=== PATIENT | female | born 2000 | race Caucasian/White ===

== ENCOUNTER 2022-10-21 09:52 | Outpatient (CLI) | payer BC, SELFPAY ==
--- NOTE | 2022-10-21 10:11 | NM_ITS ---
WS: [id number] NUCLEAR MEDICINE HIDA SCAN WITH GALLBLADDER EJECTION FRACTION HISTORY: RUQ PAIN COMPARISON: Gallbladder ultrasound 09/21/2022 TECHNIQUE: The patient was intravenously injected with 7.2 mCi of TC99m Mebrofenin. Immediate imaging over the right upper quadrant was followed by 5 minute image and additional images for a total of 60 minutes. Normal uptake of radiotracer throughout the liver. Activity identified in the gallbladder at 10 minutes and well distended by 60 minutes. Activity in the proximal small bowel was seen by 30 minutes. Good washout of the radiotracer from the liver by 60 minutes. The patient then drank 8 ounces of Ensure Plus. Ejection fraction at 60 minutes was 83%. Normal GB ej ection fraction is 35-75%. Post fatty meal symptoms: None. NM/NM hepatobiliary w phar* [id number] IMPRESSION: 1. Normal HIDA scan. 2. Normal gallbladder ejection fraction.
== END 2022-10-21 09:53 | disposition home or self-care (01) ==
PROVIDERS: PCP Family Medicine; Visit Provider Family Medicine
DX: R10.11 Right upper quadrant pain (principal)
CPT/HCPCS: 78227; A9537

== ENCOUNTER → 2023-09-01 13:44 | Outpatient (BNVA) | payer MEDICAID, SELFPAY | PROVIDERS: PCP Family Medicine; Visit Provider Family Medicine | DX: Z34.90 Encounter for supervision of normal pregnancy, unspecified, unspecified trimester (principal); Z3A.00 Weeks of gestation of pregnancy not specified; R30.0 Dysuria | CPT/HCPCS: 80307; 81000; 81025; 84144; 84443; 84702; 85025; 86592; 86762; 86803; 86850; 86900; 87086; 87340; 87491; 87591; 87624; 87806 ==

== ENCOUNTER 2023-09-14 09:41 | Outpatient (CLI) | payer MEDICAID, SELFPAY ==
--- NOTE | 2023-09-14 10:00 | US_ITS ---
WS: [id number] EARLY OBSTETRICAL ULTRASOUND (<14 WEEKS). HISTORY: Dating COMPARISON: None available. Single intrauterine gestational sac is identified. Cardiac activity at 144 BPM. [place]-rump length isaias sures 1.0 cm which corresponds to a gestation of 7w1d. Normal-appearing yolk sac and amnion demonstra froilan. No subchorionic hemorrhage. No free fluid. Corpus luteal cyst RIGHT ovary measures 2.0 x 2.1 x 2.3 cm. Both ovaries contain normal flow. IMPRESSION: 1. Single intrauterine gestation of 7w1d with an EDC of 05/01/2024. 2. Normal cardiac activity.
== END 2023-09-14 09:42 | disposition home or self-care (01) ==
LOC: RAD 09:41
PROVIDERS: PCP Family Medicine; Visit Provider Family Medicine
DX: Z34.00 Encounter for supervision of normal first pregnancy, unspecified trimester (principal); Z34.01 Encounter for supervision of normal first pregnancy, first trimester; Z3A.01 Less than 8 weeks gestation of pregnancy
CPT/HCPCS: 76801; 76817

== ENCOUNTER → 2023-11-25 07:20 | Outpatient (BNVA) | payer MEDICAID, SELFPAY | PROVIDERS: PCP Family Medicine; Visit Provider Family Medicine | DX: Z34.00 Encounter for supervision of normal first pregnancy, unspecified trimester (principal); Z3A.00 Weeks of gestation of pregnancy not specified | CPT/HCPCS: 81511 ==

== ENCOUNTER → 2024-01-23 10:14 | Outpatient (BNVA) | payer MEDICAID, SELFPAY | PROVIDERS: PCP Family Medicine; Visit Provider Family Medicine | DX: Z34.00 Encounter for supervision of normal first pregnancy, unspecified trimester (principal); Z3A.00 Weeks of gestation of pregnancy not specified | CPT/HCPCS: 82950 ==

== ENCOUNTER → 2024-03-05 11:09 | Outpatient (BNVA) | payer MEDICAID, SELFPAY | PROVIDERS: PCP Family Medicine; Visit Provider Family Medicine | DX: Z51.81 Encounter for therapeutic drug level monitoring (principal) | CPT/HCPCS: 85025 ==

== ENCOUNTER → 2024-04-02 12:39 | Outpatient (BNVA) | payer MEDICAID, SELFPAY | PROVIDERS: PCP Family Medicine; Visit Provider Family Medicine | DX: Z34.90 Encounter for supervision of normal pregnancy, unspecified, unspecified trimester (principal); Z3A.00 Weeks of gestation of pregnancy not specified | CPT/HCPCS: 87081 ==

== ENCOUNTER 2024-04-08 17:32 | Outpatient (CLI) | payer MEDICAID, SELFPAY ==
[2024-04-08 17:30] VITALS: BMI 354.2
[2024-04-08 17:45] VITALS: BP 149/98; PULSE 76
[2024-04-08 17:57] LABS: Bilirubin Urine Negative (Negative); Blood Urine Negative (Negative); Glucose Urine UA Negative (Normal); Ketones Urine Negative (Negative); Leukocyte Esterase Urine Negative (Negative); Nitrate Urine Negative (Negative); Protein Urine Negative (Negative); Specific Gravity, Urine 1.007 (1.005-1.030); Urine Appearance Clear (CLEAR); Urine Color Yellow (Yellow)
[2024-04-08 18:01] VITALS: BP 142/75; PULSE 71
[2024-04-08 18:02] LABS: Bacteria Urine Trace /hpf; RBC Urine 0-2 /hpf (0-2); Squamous Epithelial Cell Urine 0-5 /hpf (0-5); WBC Urine 0-5 /hpf (0-5)
[2024-04-08 18:24] LABS: Urine Creatinine 38 mg/dL (28-217); Urine Protein Random 6 mg/dL
[2024-04-08 18:25] LABS: UPRO/UCREAT Ratio 0.16 mg/mg CR
[2024-04-08 18:30] VITALS: BP 124/76; PULSE 68
[2024-04-08 18:30] LABS: Basophils # 0.1 10^3/uL (0.0-0.1); Basophils % 0.4 %; Eosinophils # 0.1 10^3/uL (0.0-0.8); Eosinophils % 0.6 %; Hematocrit 37.6 % (36-47); Lymphocytes # 2.3 10^3/uL (0.8-4.8); Lymphocytes % 19.3 %; Mean Corpuscular HGB Conc 33.2 g/dL (30-55); Mean Corpuscular Hemoglobin 30.2 pg (27-33); Mean Corpuscular Volume 90.8 fl (85-98); Mean Platelet Volume 9.9 fL (7.4-10.4); Monocytes % 8.5 %; Neutrophils # 8.52 10^3/uL (1.8-7.7); Neutrophils % 70.7 %; Nucleated Red Blood Cells % 0 %; Platelet Count 249 10^3/cmm (157-399); Red Blood Count 4.14 10^6/uL (3.85-5.65); Red Cell Distribution Width 12.8 % (12.1-15.1); White Blood Count 12.05 10^3/uL (3.29-11.43)
[2024-04-08 18:45] VITALS: BP 125/73; PULSE 64
[2024-04-08 18:51] LABS: Alanine Aminotransferase 12 U/L (0-33); Albumin Level 3.3 g/dL (3.5-5.2); Alkaline Phosphatase 134 U/L (35-105); Anion Gap 13.7 (5-19); Aspartate Amino Transferase 21 U/L (0-32); Blood Urea Nitrogen 8 mg/dL (6-20); Calcium 8.3 mg/dL (8.5-10.5); Carbon Dioxide 22 mmol/L (22-29); Chloride 106 mmol/L (98-107); Creatinine Clr Calc Pharmacy 923.2607; Globulin 2.2 g/dL (1.3-4.6); Glomerular Filtration Rate 126.2 mL/min (90-130); Glucose 90 mg/dL (65-115); Osmolality Calculated 284 mOsm/kg (285-295); Potassium 3.7 mmol/L (3.5-5.1); Sodium 138 mmol/L (136-145); Total Bilirubin 0.2 mg/dL (0.15-1.2); Total Protein 5.5 g/dL (6.6-8.7)
[2024-04-08 19:00] VITALS: BP 125/76; PULSE 66
[2024-04-08 19:15] VITALS: BP 125/76; PULSE 66; O2SAT 0
== END 2024-04-08 19:21 | disposition home or self-care (01) ==
LOC: OPOB 17:32 → OBGYN 17:33
PROVIDERS: PCP Family Medicine; Visit Provider Family Medicine
DX: O16.9 Unspecified maternal hypertension, unspecified trimester (principal); Z3A.00 Weeks of gestation of pregnancy not specified
CPT/HCPCS: 36415; 59025; 80053; 81001; 82570; 84156; 84550; 85025; 99211

== ENCOUNTER 2024-04-09 19:06 | Outpatient (CLI) | payer MEDICAID, SELFPAY | END 2024-04-09 19:07 | disposition home or self-care (01) | PROVIDERS: PCP Family Medicine; Visit Provider Family Medicine | DX: O16.3 Unspecified maternal hypertension, third trimester (principal) | CPT/HCPCS: 84156 ==

== ENCOUNTER 2024-04-12 09:51 | Outpatient (CLI) | payer MEDICAID, SELFPAY ==
[2024-04-12] VITALS (7 sets, daily range): BP systolic 115–132; BP diastolic 56–80; PULSE 63–96; TEMP 35.8; BMI 35.0
--- NOTE | 2024-04-12 10:29 | USR_ITS ---
PROCEDURE INFORMATION: Exam: US Biophysical Profile Without Non-Stress Test Exam date and time: 04/12/2024 11:09 AM Age: 23 years old Clinical indication: Other: HTN; ; Additional info: Gestational hypertension, jaylen, efw, pi TECHNIQUE: Imaging protocol: US biophysical profile without non-stress testing. COMPARISON: US OB >= 14 weeks fetus [id number] 12/19/2023 8:05 AM FINDINGS: heart rate: 142 bpm. presentation and position: Cephalic presentation. Placenta: Posterior fundal placenta without previa. Amniotic fluid index: JAYLEN is 14.35 cm. BIOPHYSICAL PROFILE: breathing (BPP): 2 out of 2. gross body movement (BPP): 2 out of 2. tone (BPP): 2 out of 2. Amniotic fluid (BPP): 2 out of 2. JAYLEN is 14.35. BIOMETRY: Estimated due date (AUA): Composite ultrasound age is 37 weeks and 4 days which gives an estimated date of delivery of April 29, 2024. Menstrual dating estimates the gestational age to be 37 weeks and 2 days which gives an estimated date of delivery of May 01, 2024. Estimated weight: Estimated weight is 3149 g or 6 lb 15 oz. This is the 56.1 percentile. Head circumference (HC): Head circumference is 33.46 cm. Thirty-eight weeks and 2 days. 49.3 percentile. Biparietal diameter (BPD): Biparietal diameter is 9.26 cm. Thirty-seven weeks and 4 days. 76.3 percentile. Abdominal circumference (AC): Abdominal circumference is 33.04 cm. Thirty-seven weeks and 0 days. 55.5 percentile. Femur length (FL): Femur length is 7.25 cm. Thirty-seven weeks and 1 day. 45.5 percentile. biometric ratios: Femur length to abdominal circumference ratio is 21.94. Femur length to head circumference ratio is 21.67. Femur length to biparietal diameter ratio is 78.29. Head circumference to abdominal circumference ratio is 1.01. These ratios are all within normal limits. MATERNAL ANATOMY: Uterus: Single live intrauterine baby. Cervix: Cervical length measures 3.9 cm. Normal-appearing maternal cervix. Other findings: Umbilical cord resistive index is 0.51. PS/ED is 2.0. US/US OB lm w fetalBPP woNST &umb IMPRESSION: 1. Normal biophysical profile score is 8/8. 2. Additional details as above.
== END 2024-04-12 12:12 | disposition home or self-care (01) ==
LOC: OPOB 09:53 → OBGYN 09:53
PROVIDERS: PCP Family Medicine; Visit Provider Family Medicine
DX: O16.3 Unspecified maternal hypertension, third trimester (principal); Z3A.37 37 weeks gestation of pregnancy
CPT/HCPCS: 59025; 76815; 76819; 76820

== ENCOUNTER 2024-04-18 06:02 | Inpatient (IN) | payer MEDICAID, SELFPAY ==
[2024-04-18] VITALS (73 sets, daily range): BP systolic 104–188; BP diastolic 57–100; PULSE 57–152; RESP 16–18; TEMP 35.7–36.6; O2SAT 88–100; BMI 34.5
[2024-04-18 06:46] LABS: Bilirubin Urine Negative (Negative); Blood Urine 2+ (Negative); Glucose Urine UA Negative (Normal); Ketones Urine Negative (Negative); Leukocyte Esterase Urine 1+ (Negative); Nitrate Urine Negative (Negative); Protein Urine 1+ (Negative); Specific Gravity, Urine 1.018 (1.005-1.030); Urine Appearance Cloudy (CLEAR); Urine Color Dark Yellow (Yellow)
[2024-04-18 06:47] LABS: Basophils # 0.1 10^3/uL (0.0-0.1); Basophils % 0.4 %; Eosinophils # 0.1 10^3/uL (0.0-0.8); Eosinophils % 0.6 %; Hematocrit 38.6 % (36-47); Lymphocytes # 2.5 10^3/uL (0.8-4.8); Lymphocytes % 17.8 %; Mean Corpuscular HGB Conc 33.4 g/dL (30-55); Mean Corpuscular Hemoglobin 29.9 pg (27-33); Mean Corpuscular Volume 89.4 fl (85-98); Mean Platelet Volume 10.5 fL (7.4-10.4); Monocytes # 0.9 10^3/uL (0.2-0.9); Monocytes % 6.4 %; Neutrophils # 10.32 10^3/uL (1.8-7.7); Neutrophils % 73.7 %; Nucleated Red Blood Cells % 0 %; Platelet Count 288 10^3/cmm (157-399); Red Blood Count 4.32 10^6/uL (3.85-5.65); Red Cell Distribution Width 12.7 % (12.1-15.1); White Blood Count 14.02 10^3/uL (3.29-11.43)
[2024-04-18 06:51] LABS: Add Urine Microscopic? YES; Bacteria Urine 4+ /hpf; Hyaline Casts Urine 8.26 /lpf; RBC Urine 51-100 /hpf (0-2); WBC Urine 51-100 /hpf (0-5)
[2024-04-18 07:21] LABS: Squamous Epithelial Cell Urine 21-50 /hpf (0-5)
[2024-04-18 07:23] LABS: UA Slide Review UA Slide Review Perf
[2024-04-18 07:27] LABS: Urine Creatinine 203 mg/dL (28-217)
[2024-04-18] MEDS: miSOPROStol 100 mcg tablet 25 MCG VAGINAL (07:31)
[2024-04-18 07:32] LABS: Alanine Aminotransferase 14 U/L (0-33); Albumin Level 3.3 g/dL (3.5-5.2); Alkaline Phosphatase 152 U/L (35-105); Anion Gap 16.7 (5-19); Aspartate Amino Transferase 20 U/L (0-32); Blood Urea Nitrogen 10 mg/dL (6-20); Calcium 8.2 mg/dL (8.5-10.5); Carbon Dioxide 17 mmol/L (22-29); Chloride 104 mmol/L (98-107); Creatinine Clr Calc Pharmacy 187.7468; Globulin 3.1 g/dL (1.3-4.6); Glomerular Filtration Rate 155.7 mL/min (90-130); Glucose 84 mg/dL (65-115); Osmolality Calculated 276 mOsm/kg (285-295); Potassium 3.7 mmol/L (3.5-5.1); Sodium 134 mmol/L (136-145); Total Bilirubin 0.3 mg/dL (0.15-1.2); Total Protein 6.4 g/dL (6.6-8.7); Uric Acid 5.5 mg/dL (2.4-5.7)
[2024-04-18 07:39] LABS: UPRO/UCREAT Ratio 0.21 mg/mg CR; Urine Protein Random 42 mg/dL
[2024-04-18] MEDS: fentaNYL 50 mcg/mL INJ 2mL IVP ×2 (14:15→15:48)
--- NOTE | 2024-04-18 14:41 | P.HP_ITS ---
Providers/Chief Complaint 2 Admitting Physician: Jorge Sánchez MD Primary Care Provider: James Torres MD Chief Complaint: INDUCTION History of Present Illness Ailyn Das is a 23 year old @ 38.1 wks by 7 wk US inconsistent with LMP. Preg c/b vaping, anxiety/depression - on Sertraline 25mg daily, gHTN on labetalol. The patient presented to labor and delivery for a scheduled induction of labor secondary to gestational hypertension. She has been having blood pressures that will get as high as 150s to 160s over 100s. With the labetalol it seems to keep it in a decent range in the 140s over 90s. She took 100 mg by mouth on the morning of admission prior to coming in. Currently the patient is feeling well. She denies any chest pains, shortness of breath, nausea, vomiting, diarrhea, constipation, dysuria, vaginal bleeding, leakage of fluid. She has had some headaches that improved with Tylenol. Medications/Allergies Home Medications Medication Instructions Recorded Confirmed Last Taken Type [id number] 27 mg-folic 1 pkg PO DAILY 09/01/23 04/16/24 1 Day Ago History acid 800 mcg-dha 200 mg-lut.oral ~04/11/24 pack sertraline 25 mg tablet 25 mg PO DAILY #30 tabs 03/05/24 04/16/24 1 Day Ago Rx ~04/11/24 labetalol 100 mg tablet 50 mg (1/2 x 100 mg) PO BID #30 04/09/24 04/16/24 1 Day Ago Rx tabs ~04/11/24 Allergies Allergy/AdvReac Type Severity Reaction Status Date / Time No Known Allergies Allergy Verified 02/20/24 10:07 PFSH Acute 2 PFSH: Surgical History No pertinent past surgical history Social History Smoking and tobacco/nicotine status: former use of tobacco/nicotine Alcohol intake: never Substance/Drug Use: never Current occupational status: employed Current occupation: [employer] Female Reproductive History: : 1 Vitals/I&O/Wt Last Vital Signs Pulse 58 L 04/18/24 13:08 Resp 17 04/18/24 14:15 BP 140/87 04/18/24 13:08 O2 Del Method Room Air 04/18/24 06:24 Weight last 48 hrs Weight 195 lb Physical Exam 2 Narrative: General: Alert and oriented x3 Eyes: Pupils equal round and reactive to light and accommodation Mouth: Mucous membranes moist, pharynx non-erythematous Cardiac: Regular rate and rhythm without murmurs Lungs: Clear to auscultation bilaterally without wheezes, crackles or rhonchi Abdomen: Soft, non-tender, fundus consistent with gestational age Extremities: Trace edema in the bilateral lower extremities Data 04/18/24 06:37 04/18/24 07:06 A&P Assessment and plan (1) Supervision of high risk , unspecified, third trimester: The patient is being induced for gestational hypertension. She has been having increasing blood pressures despite labetalol treatment. Her 24-hour urine protein done last week was 162. We will repeat labs today. We will implement the antihypertensive protocol as needed. The patient is GBS negative. We will plan to start induction using Cytotec and augment labor with Pitocin if needed. The patient may have a laboring epidural when desired. Currently heart tones are in a category 1 tracing. (2) Gestational hypertension: Attestations 2 Medical Necessity Statement*: The patient will be here for greater than 2 midnights due to routine intrapartum and management of labor and delivery. Coding Level of Care Code Acute Code for Chg Fwd Diagnoses Supervision of high risk , unspecified, third trimester O09.93 Gestational hypertension O13.9
[2024-04-18] MEDS: lactated ringers 1,000 ML 999 ML IV ×2 (15:13→16:14)
--- NOTE | 2024-04-18 15:50 | P.ANESASSM_ITS ---
Pre-Anesthetic Assessment Height/Weight: Height 5 ft 3 in Weight 195 lb Temp Pulse Resp BP Pulse Ox O2 Del Method 96.3 F L 75 17 145/72 92 Room Air 04/18/24 16:24 04/18/24 16:24 04/18/24 14:15 04/18/24 16:24 04/18/24 16:23 04/18/24 06:24 Preop Diagnosis: Requesting epidural Was Beta Hernan taken within 24 hours: Yes Was Clonidine taken within 24 hours: N/A Social No alcohol and No tobacco Exam alert, oriented x 3, clear to auscultation bilaterally and regular rate & rhythm Airway Submandibular: within normal limits Cervical ROM: within normal limits Mallampati: Class III Dentition: full Anesthetic Plan ASA status: 3 Anesthesia: Regional (specify below) Other: G1, P0 requesting epidural placement Gestational hypertension on labetalol. Most previous BP 145/72 Labs reviewed, platelets 288 Patient denies any issues other than hypertension during METs greater than 4 Plan for epidural Medications/Allergies Home Medications Medication Instructions Recorded Confirmed Last Taken Type [id number] 27 mg-folic 1 pkg PO DAILY 09/01/23 04/16/24 1 Day Ago History acid 800 mcg-dha 200 mg-lut.oral ~04/11/24 pack sertraline 25 mg tablet 25 mg PO DAILY #30 tabs 03/05/24 04/16/24 1 Day Ago Rx ~04/11/24 labetalol 100 mg tablet 50 mg (1/2 x 100 mg) PO BID #30 04/09/24 04/16/24 1 Day Ago Rx tabs ~04/11/24 Allergies Allergy/AdvReac Type Severity Reaction Status Date / Time No Known Allergies Allergy Verified 02/20/24 10:07 Current Medications Generic Name Dose Route Start Last Admin Trade Name Freq PRN Reason Stop Dose Admin Fentanyl 25 - 100 mcg 04/18/24 06:06 04/18/24 14:15 Fentanyl 50 Mcg/Ml Inj 2ml IVP 25 mcg Q1H PRN Administration SEVERE PAIN Lactated Ringer's 1,000 mls @ 999 mls/hr 04/18/24 14:45 04/18/24 16:14 Lactated Ringers IV 999 mls/hr .Q1H1M PRN Administration See label comments Ropivacaine 100 mg in 50 mls @ 10 mls/hr 04/18/24 14:45 04/18/24 16:07 Naropin Syringe EPIDURAL 10 mls/hr .Q5H STEFAN Administration PFSH Anesthesia Surgical History No pertinent past surgical history Social History Smoking and tobacco/nicotine status: former use of tobacco/nicotine Alcohol intake: never Substance/Drug Use: never Current occupational status: employed Current occupation: [employer] Female Reproductive History : 1 Data Anesthesia 04/18/24 06:37 04/18/24 07:06 Short CBC 04/18/24 Range/Units 06:37 WBC 14.02 H (3.29-11.43) 10^3/uL Hgb 12.90 (11.27-16.99) g/dL Hct 38.6 (36-47) % MCV 89.4 (85-98) fl Plt Count 288 (157-399) 10^3/cmm Neut % (Auto) 73.7 % Neut # (Auto) 10.32 H (1.8-7.7) 10^3/uL BMP 04/18/24 04/18/24 06:37 07:06 Sodium Cancelled 134 L Potassium Cancelled 3.7 Chloride Cancelled 104 Carbon Dioxide Cancelled 17 L BUN Cancelled 10 Creatinine Cancelled 0.5 Glucose Cancelled 84 Calcium Cancelled 8.2 L Liver Function 04/18/24 04/18/24 Range/Units 06:37 07:06 Total Bilirubin Cancelled 0.3 AST Cancelled 20 ALT Cancelled 14 Alkaline Phosphatase Cancelled 152 H Albumin Cancelled 3.3 L Urine 04/18/24 Range/Units 06:26 Urine Color Dark yellow A (Yellow) Urine Appearance Cloudy A (CLEAR) Urine pH 6.0 (5-7) Ur Specific [place] 1.018 (1.005-1.030) Urine Protein 1+ A (Negative) Urine Glucose (UA) Negative (Normal) Urine Ketones Negative (Negative) Urine Nitrate Negative (Negative) Urine Bilirubin Negative (Negative) Ur Leukocyte Esterase 1+ A (Negative) Urine RBC 51-100 H (0-2) /hpf Urine WBC 51-100 H (0-5) /hpf Blood Bank 04/18/24 04/18/24 06:37 07:06 Blood Type Cancelled A Positive Rho(D) Type Cancelled Rh positive Antibody Screen Cancelled Negative Cardiac Studies: 2 No Data to Display
--- NOTE | 2024-04-18 16:03 | P.ANES_ITS ---
Anesthesia Procedures Procedure/Date: 04/18/24 Epidural: Time Out Performed: Yes Consents Signed: Procedure Consent Consent: requested by attending/covering physician and from patient Lumbar Level: L3-L4 Epidural position: sitting Epidural procedure: sterile prep of area, 1% lidocaine to numb the area, 18 g needle, negative for paresthesia p assed, neg for paresthesia, test dose given, 1.5% xylocaine 1:200k epi, 0.2% Ropivacaine bolus ml, placed PCEA, no systemic response, sterile dressing applied, L.U.D. no apparent complications and 0.2% Ropiavacaine @ mls/hr (10mls/hr)
[2024-04-18] MEDS: ROPivacaine syringe 100 MG/50 ML SYRINGE 10 MG EPIDURAL (16:07)
[2024-04-18] MEDS: oxytocin 30 UNIT/500 ML BAG 600 UNIT IV (18:17)
[2024-04-18] MEDS: lidocaine 2% INJ 20 mL INJECTION (18:23)
--- NOTE | 2024-04-18 18:51 | P.PCNOB_ITS ---
Delivery Note: Date of delivery: April 18, 2024 Pre-delivery diagnoses: 1. Intrauterine at 38.1 weeks gestation 2. Vaping during 3. Anxiety/depression on sertraline 4. Gestational hypertension on labetalo l Post-delivery diagnoses: 1. Intrauterine status post s pontaneous vaginal delivery at 38.1 weeks gestation 2. Vaping during 3. Anxiety/depression on sertraline 4. Gestational hypertension on labetalo l 5. Delivery of healthy female we ighing 7 pounds 3 ounces with Apgars of 8 and 9 Procedure: Spontaneous vaginal delivery Delivering Physician: Jorge Sánchez MD Estimated blood loss (mL): 200 Findings: 1. Intact placenta with central umbilic al cord insertion site 2. Healthy female weighing 7 tanya nds 3 ounces with Apgars of 8 and 9 Pre-Delivery Course: Ailyn Das is a 23 year old G1 now P1 status post spontaneous vaginal delivery @ 38.1 wks by 7 wk US inconsistent with LMP. Her was complicated by vaping, anxiety/depression - on Sertraline 25mg daily, gHTN on labetalol. The patient presented to labor and delivery for a scheduled induction of labor secondary to gestational hypertension. She had been having blood pressures that will get as high as 150s to 160s over 100s. With the labetalol it seemed to keep it in a decent range in the 140s over 90s. She took 100 mg by mouth on the morning of admission prior to coming in. She denied any chest pains, shortness of breath, nausea, vomiting, diarrhea, constipation, dysuria, vaginal bleeding, leakage of fluid. She had some headaches that improved with Tylenol. The patient was started on Cytotec upon admission. She was 1 cm and 70% effaced. After 1 dose, she began to contract regularly and made change to 2 cm. She continued to contract, so no further doses were placed. The patient started to make further change on her own, so no further medications were given. The patient continues to make change and a laboring epidural was given. The patient was comfortable with this. The patient changed on her own and was complete at 1652 on 04/18/2024. AROM was performed at that time and clear fluid was noted. Delivery: The patient was allowed to labor down for 30 minutes. She began pushing at 1738 on 04/18/2024. The patient pushed well and the infant delivered in the OA position at 1812 on 04/18/2024. The left shoulder was the anterior shoulder and it delivered with ease. There was no nuchal cord. The rest of the d elivered without complication. The infant's mouth and nose were bulb suctioned by myself. The infant was placed on the mother's chest where the nurses were waiting to care for her. The cord was clamped by myself after approximately 1 minute. The cord was cut by the infant's father. Cord blood was obtained. The cord was then drained of blood and uterine massage was carried out. The placenta delivered without complication at 1817 on 04/18/2024. The placenta was noted to be intact with a central umbilical cord insertion site. The cervix was inspected and no lacerations were noted. The vaginal wall was inspected and a second-degree perineal laceration was noted. 2% lidocaine was placed for anesthesia. 3-0 Vicryl was used to repair the laceration in a running fashion. The patient tolerated this well. A rectal exam was done and no sutures were noted in the rectum. Currently both the mother and are doing well. History History History 1 Term 1 0 Miscarriages/Ectopic 0 Living Children 1 Past Pregnancies Del. Date GA/Weeks Outcome Route Wt Inf Gender Labor Lgth Comp. Anesth esia Location 04/18/24 38 live - full term Vaginal 7 lb 3 oz Female 11 hr regional [facility] Delivery Date: 04/18/24 Last Updated by: Jorge Sánchez MD Induced due to gHTN on Labetalol, anxiety/depression, vaping A&P Assessment and plan (1) Spontaneous vaginal delivery: (2) Gestational hypertension: Coding Level of Care Code Acute Code for Chg Fwd Diagnoses Spontaneous vaginal delivery O80 Gestational hypertension O13.9
[2024-04-18] MEDS: ibuprofen 800 mg tablet PO (21:30)
[2024-04-18] MEDS: lanolin oint 7 gm 1 APPLIC TOPICAL (21:38)
[2024-04-18] MEDS: benzocaine-menthol 78 gm Canister 1 SPRAY TOPICAL (21:39)
[2024-04-19] VITALS (8 sets, daily range): BP systolic 133–188; BP diastolic 65–95; PULSE 67–89; TEMP 36.8
[2024-04-19 06:14] LABS: Hematocrit 37.2 % (36-47); Mean Corpuscular HGB Conc 33.1 g/dL (30-55); Mean Corpuscular Hemoglobin 29.4 pg (27-33); Mean Platelet Volume 10.1 fL (7.4-10.4); Platelet Count 258 10^3/cmm (157-399); Red Blood Count 4.18 10^6/uL (3.85-5.65); Red Cell Distribution Width 12.6 % (12.1-15.1); White Blood Count 16.95 10^3/uL (3.29-11.43)
--- NOTE | 2024-04-19 08:00 | ANE.PACU2 ---
Inpatient post-anesthesia follow up: Airway intact: Yes Vital signs: Temperature 98.1 F Pulse Rate 62 Respiratory Rate 16 Blood Pressure 130/91 Pulse Oximetry 98 Oxygen Delivery Me thod Room Air Oxygen Flow Rate Fraction of Inspir ed Oxygen Hydration adequate: Yes Nausea and vomiting: No Pain level: 1 Mental status: Baseline Epidural Start/End: Epidural Start Date: 04/18/24 Epidural Start Time: 16:03 Epidural End Date: 04/18/24 Epidural End Time: 21:52
[2024-04-19] MEDS: ibuprofen 800 mg tablet PO ×3 (09:00→21:36)
[2024-04-19] MEDS: PRENATAL VIT NO.130/IRON/FOLIC 1 EACH TABLET PO (16:27)
[2024-04-19] MEDS: docusate sodium 100 mg Capsule PO ×2 (16:27→21:36)
[2024-04-19] MEDS: labetalol 200 mg Tablet 100 MG PO (16:29)
--- NOTE | 2024-04-19 16:56 | P.PN_ITS ---
Subjective 2 Subjective: The patient is doing well overall . Her bleeding is decreased mild. She is ambulating, voiding, passing gas and tolerating food by mouth. Vitals/I&O/Wt Last Vital Signs Temp 98.3 F 04/19/24 03:15 Pulse 82 04/19/24 16:27 Resp 16 04/18/24 17:00 BP 176/92 04/19/24 16:27 Pulse Ox 100 04/18/24 17:19 O2 Del Method Room Air 04/18/24 06:24 Weight last 48 hrs Weight 195 lb Physical Exam 2 Narrative: General: Alert and oriented x3 Cardiac: Regular rate and rhythm without murmurs Lungs: Clear to auscultation bilaterally without wheezes, crackles or rhonchi Abdomen: Soft, mild tenderness over uterus. The uterus is firm and 2 cm below the umbilicus. Extremities: Trace edema in the bilateral lower extremities Urinary Catheter Management: Vega Latex: Cath Placed During This Visit: yes, but has since been removed by the nurse Reason for Continuing Indwelling Catheter: Decision to DC Catheter Urinary Catheter Date of Insertion: 04/18/24 Urinary Catheter Time of Insertion: 16:55 Date Urinary Catheter Removed: 04/18/24 Time Urinary Catheter Discontinued: 17:35 Data 04/19/24 05:57 04/18/24 07:06 A&P Assessment and plan (1) Spontaneous vaginal delivery: The patient is doing well overall, however her blood pressure is starting to move up. We will restart her labetalol 100 mg twice a day. Will monitor her blood pressures and if not improving, increase blood pressure meds at that time. We will need to keep her at least 1 more midnight to monitor. (2) Gestational hypertension: Attestations 2 Medical Necessity Statement*: The patient continues to need inpatient care as we monitor her for gestational hypertension complications. Her stay will continue to cross 2 midnights. Coding Level of Care Code Acute Code for Chg Fwd Diagnoses Spontaneous vaginal delivery O80 Gestational hypertension O13.9
[2024-04-20 03:00] VITALS: TEMP 36.4
[2024-04-20 03:13] VITALS: BP 139/88; PULSE 62
[2024-04-20] MEDS: ibuprofen 800 mg tablet PO (09:12)
[2024-04-20] MEDS: docusate sodium 100 mg Capsule PO (09:12)
[2024-04-20] MEDS: labetalol 200 mg Tablet 100 MG PO (09:12)
[2024-04-20] MEDS: PRENATAL VIT NO.130/IRON/FOLIC 1 EACH TABLET PO (09:12)
[2024-04-20 10:32] VITALS: BP 119/70; PULSE 63; RESP 14; TEMP 36.7; O2SAT 98
--- NOTE | 2024-04-20 13:31 | PM.DCS ---
Discharge Providers Date of Admission: 04/18/24 06:02 Date of Discharge: April 20, 2024 Attending Provider at Admission: Jorge Sánchez MD Attending Provider at Discharge: Jorge Sánchez MD Primary Care Provider: James Torres MD Diagnoses at Discharge Discharge Diagnosis (1) Spontaneous vaginal delivery: Status: Acute (2) Gestational hypertension: Status: Acute Other Information Additional DC diagnoses/information: 1. Intrauterine status post spontaneous vaginal delivery at 38.1 weeks gestation 2. Vaping during 3. Anxiety/depression on sertraline 4. Gestational hypertension on labetalol 5. Delivery of healthy infant female weighing 7 pounds 3 ounces with Apgars of 8 and 9 Reason for Visit Reason for Visit: INDUCTION Brief History: Ailyn Das is a 23 year old G1 now P1 status post spontaneous vaginal delivery @ 38.1 wks by 7 wk US inconsistent with LMP. Her was complicated by vaping, anxiety/depression - on Sertraline 25mg daily, gHTN on labetalol. The patient presented to labor and delivery for a scheduled induction of labor secondary to gestational hypertension. She had been having blood pressures that will get as high as 150s to 160s over 100s. With the labetalol it seemed to keep it in a decent range in the 140s over 90s. She took 100 mg by mouth on the morning of admission prior to coming in. She denied any chest pains, shortness of breath, nausea, vomiting, diarrhea, constipation, dysuria, vaginal bleeding, leakage of fluid. She had some headaches that improved with Tylenol. Hospital Course Hospital Course The patient was started on Cytotec upon admission. She was 1 cm and 70% effaced. After 1 dose, she began to contract regularly and made change to 2 cm. She continued to contract, so no further doses were placed. The patient started to make further change on her own, so no further medications were given. The patient continues to make change and a laboring epidural was given. The patient was comfortable with this. The patient changed on her own and was complete at 1652 on 04/18/2024. AROM was performed at that time and clear fluid was noted. The patient delivered at 1738 on 04/18/2024. The delivery was uncomplicated. She had a small second-degree perineal laceration that was repaired. The patient tolerated this well. , the patient has done well without signs of complications. Her pain has been well-controlled. Her bleeding is decreasing well. She is ambulating, voiding, passing gas and tolerating food by mouth. Her blood pressure did get significantly elevated after delivery after her epidural wore off. She had been off of her oral labetalol during the labor process. This was restarted at 100 mg twice a day and her blood pressure has responded well and her most recent blood pressure was 119/70. She feels well. She was given precautions regarding elevated blood pressure and to keep her overall activity levels low for the next few weeks especially. She is to monitor her blood pressure at home and will follow-up with me early next week to be sure that things are on track still. Routine discharge instructions were discussed. All questions were answered. The patient and her significant other are in agreement with current plan of care. Physical Exam Narrative: General: Alert and oriented x3 Cardiac: Regular rate and rhythm without murmurs Lungs: Clear to auscultation bilaterally without wheezes, crackles or rhonchi Abdomen: Soft, mild tenderness over uterus. The uterus is firm and 2 cm below the umbilicus. Extremities: Trace edema in the bilateral lower extremities Urinary Catheter Management: Vega Latex: Cath Placed During This Visit: yes, but has since been removed by the nurse Reason for Continuing Indwelling Catheter: Decision to DC Catheter Urinary Catheter Date of Insertion: 04/18/24 Urinary Catheter Time of Insertion: 16:55 Date Urinary Catheter Removed: 04/18/24 Time Urinary Catheter Discontinued: 17:35 Discharge Data Studies Completed and Pending Laboratory Results WBC 16.95 10^3/uL (3.29-11.43) H 04/19/24 05:57 RBC 4.18 10^6/uL (3.85-5.65) 04/19/24 05:57 Hgb 12.30 g/dL (11.27-16.99) 04/19/24 05:57 Hct 37.2 % (36-47) 04/19/24 05:57 MCV 89.0 fl (85-98) 04/19/24 05:57 MCH 29.4 pg (27-33) 04/19/24 05:57 MCHC 33.1 g/dL (30-55) 04/19/24 05:57 RDW 12.6 % (12.1-15.1) 04/19/24 05:57 Plt Count 258 10^3/cmm (157-399) 04/19/24 05:57 MPV 10.1 fL (7.4-10.4) 04/19/24 05:57 Neut % (Auto) 73.7 % 04/18/24 06:37 Lymph % (Auto) 17.8 % 04/18/24 06:37 Clarke % (Auto) 6.4 % 04/18/24 06:37 Eos % (Auto) 0.6 % 04/18/24 06:37 Baso % (Auto) 0.4 % 04/18/24 06:37 Neut # (Auto) 10.32 10^3/uL (1.8-7.7) H 04/18/24 06:37 Lymph # (Auto) 2.5 10^3/uL (0.8-4.8) 04/18/24 06:37 Clarke # (Auto) 0.9 10^3/uL (0.2-0.9) 04/18/24 06:37 Eos # (Auto) 0.1 10^3/uL (0.0-0.8) 04/18/24 06:37 Baso # (Auto) 0.1 10^3/uL (0.0-0.1) 04/18/24 06:37 Nucleated RBC % (auto) 0 % 04/18/24 06:37 Nucleated RBCs # 0.0 /100WBC 04/18/24 06:37 Sodium 134 mmol/L (136-145) L 04/18/24 07:06 Potassium 3.7 mmol/L (3.5-5.1) 04/18/24 07:06 Chloride 104 mmol/L (98-107) 04/18/24 07:06 Carbon Dioxide 17 mmol/L (22-29) L 04/18/24 07:06 Anion Gap 16.7 (5-19) 04/18/24 07:06 BUN 10 mg/dL (6-20) 04/18/24 07:06 Creatinine 0.5 mg/dL (0.5-0.9) 04/18/24 07:06 GFR Calculation 155.7 mL/min (90-130) H 04/18/24 07:06 Glucose 84 mg/dL (65-115) 04/18/24 07:06 Calculated Osmolality 276 mOsm/kg (285-295) L 04/18/24 07:06 Uric Acid 5.5 mg/dL (2.4-5.7) 04/18/24 07:06 Calcium 8.2 mg/dL (8.5-10.5) L 04/18/24 07:06 Total Bilirubin 0.3 mg/dL (0.15-1.2) 04/18/24 07:06 AST 20 U/L (0-32) 04/18/24 07:06 ALT 14 U/L (0-33) 04/18/24 07:06 Alkaline Phosphatase 152 U/L (35-105) H 04/18/24 07:06 Total Protein 6.4 g/dL (6.6-8.7) L 04/18/24 07:06 Albumin 3.3 g/dL (3.5-5.2) L 04/18/24 07:06 Globulin 3.1 g/dL (1.3-4.6) 04/18/24 07:06 Urine Color Dark yellow (Yellow) A 04/18/24 06:26 Urine Appearance Cloudy (CLEAR) A 04/18/24 06:26 Urine pH 6.0 (5-7) 04/18/24 06:26 Ur Specific [place] 1.018 (1.005-1.030) 04/18/24 06:26 Urine Protein 1+ (Negative) A 04/18/24 06:26 Urine Glucose (UA) Negative (Normal) 04/18/24 06:26 Urine Ketones Negative (Negative) 04/18/24 06:26 Urine Blood 2+ (Negative) A 04/18/24 06:26 Urine Nitrate Negative (Negative) 04/18/24 06:26 Urine Bilirubin Negative (Negative) 04/18/24 06:26 Urine Urobilinogen 1.0 mg/dL (Negative) 04/18/24 06:26 Ur Leukocyte Esterase 1+ (Negative) A 04/18/24 06:26 Urine RBC 51-100 /hpf (0-2) H 04/18/24 06:26 Urine WBC 51-100 /hpf (0-5) H 04/18/24 06:26 Ur Squamous Epith Cells 21-50 /hpf (0-5) 04/18/24 06:26 Amorphous Sediment Not Reportable 04/18/24 06:26 Urine Bacteria 4+ /hpf (NONE) H 04/18/24 06:26 Hyaline Casts 8.26 /lpf 04/18/24 06:26 U Random Total Protein 42 mg/dL 04/18/24 06:26 Urine Creatinine 203 mg/dL (28-217) 04/18/24 06:26 Protein/Creatinin Ratio 0.21 mg/mg CR 04/18/24 06:26 Blood Type A Positive 04/18/24 07:06 Rho(D) Type Rh positive 04/18/24 07:06 Antibody Screen Negative 04/18/24 07:06 Vitals Last Vital Signs Temp 98.1 F 04/20/24 10:32 Pulse 63 04/20/24 10:32 Resp 14 04/20/24 10:32 BP 119/70 04/20/24 10:32 Pulse Ox 98 04/20/24 10:32 O2 Del Method Room Air 04/20/24 10:32 Discharge Plan Discharge Patient Disposition: Home Condition: Good Prescriptions: New ibuprofen 800 mg Tablet 800 mg PO TID Qty: 30 0RF Continued PNV [id number]-[id number]-lutein 27 mg iron-800 mcg-200 mg combo pack 1 pkg PO DAILY sertraline 25 mg tablet 25 mg PO DAILY Qty: 30 6RF Changed labetalol 100 mg tablet 100 mg PO BID Qty: 60 3RF Discharge Orders: Discharge Order (Routine); Ordered 04/20/24 Ordered By: Jorge Sánchez Referrals: Jorge Sánchez MD [Physician] - 04/23/24 4:10 pm Discharge Diet: Regular Discharge Activity: Limit activity as instructed Patient Instructions: Depression (DC), Bleeding (DC), Preeclampsia and Eclampsia After Delivery (GEN), Vaginal Delivery (DC), Hemorrhage (DC), OB Discharge Report, OB Food/Drug Interaction Guide, Opioid Safety, OB Home Care, OB Pr[employer] Parent Packet Activity Restrictions/Additional Instructions: Nothing per vagina for 6 weeks. Showers are recommended instead of baths for the first 6 weeks. Keep your overall activity levels decreased for the next few weeks to help prevent your blood pressure from getting too high. Discharge Attestations Time Spent in Discharge Care*: greater than 30 min Quality Metrics Clinical Quality Measures [ No reported AMI, CVA or VTE this stay] Coding Level of Care Code Acute Code for Chg Fwd Diagnoses Spontaneous vaginal delivery O80 Gestational hypertension O13.9
[2024-04-20 14:30] VITALS: BP 130/91; PULSE 62; RESP 16; TEMP 36.7; O2SAT 98
== END 2024-04-20 14:45 | disposition home or self-care (01) | DRG 807 ==
LOC: OPOB 06:04 → OBGYN 06:04
PROVIDERS: Admitting Provider Family Medicine; PCP Family Medicine; Visit Provider Family Medicine
DX: O13.4 Gestational [pregnancy-induced] hypertension without significant proteinuria, complicating childbirth (principal); Z37.0 Single live birth; Z3A.38 38 weeks gestation of pregnancy; O99.344 Other mental disorders complicating childbirth; F41.9 Anxiety disorder, unspecified; F32.A Depression, unspecified; O70.1 Second degree perineal laceration during delivery; O99.334 Smoking (tobacco) complicating childbirth; F17.290 Nicotine dependence, other tobacco product, uncomplicated
CPT/HCPCS: 36415; 51702; 59409; 80053; 81001; 82570; 84156; 84550; 85025; 85027; 86850; 86900; 96374; 96376; J2590; J2795; J3010; J7120